=== PATIENT | female | born 1990 | race American Indian/Alaskan Native ===

== ENCOUNTER 2016-11-03 08:38 | Emergency (ER) | payer MEDICAID ==
[2016-11-03 09:25] LABS: Basophils % (Auto) 0.9 % (0.0-1.8); Eosinophils % (Auto) 1.6 % (0.0-4.3); Hematocrit 39.3 % (30.3-42.9); Hemoglobin 12.7 gm/dl (10.1-14.3); Mean Corpuscular HGB Conc 32 % (30-34); Mean Corpuscular Hemoglobin 28 pg (28-32); Mean Corpuscular Volume 86 fl (79-97); Platelet Count 330 K/mm3 (140-440); White Blood Count 9.3 K/mm3 (4.5-11.0)
[2016-11-03 09:35] LABS: Bacteria,Urine 3+ /HPF (Negative); Bilirubin,Urine NEG (Negative); Blood,Urine NEG (Negative); Ketones,Urine NEG (Negative); Leukocyte Esterase,Urine LG (Negative); Mucus,Urine FEW /HPF; Nitrite,Urine NEG (Negative)
[2016-11-03 09:35] LABS: Alanine Aminotransferase 14 units/L (7-56); Albumin 3.9 g/dL (3.9-5); Albumin/Globulin Ratio 1.2 %; Alkaline Phosphatase 48 units/L (35-129); Anion Gap 18 mmol/L; Blood Urea Nitrogen 6 mg/dL (7-17); Calcium 9.2 mg/dL (8.4-10.2); Carbon Dioxide 22 mmol/L (22-30); Chloride 100.6 mmol/L (98-107); Glucose 86 mg/dL (65-100); Lipase 19 units/L (13-60); Potassium 3.8 mmol/L (3.6-5.0); Sodium 137 mmol/L (137-145); Total Protein 7.2 g/dL (6.3-8.2)
[2016-11-03 09:36] LABS: RBC,Urine < 1.0 /HPF (0.0-6.0)
--- NOTE | 2016-11-03 11:00 | Emergency Department Report ---
ED Female HPI - General Chief complaint: Abdominal Pain Stated complaint: ABD PAIN/10WKS Time Seen by Provider: 11/03/16 10:57 Source: patient, RN notes reviewed Mode of arrival: Ambulatory Limitations: No Limitations - History of Present Illness Initial comments: This is a 26-year-old female. She is previously unknown to me. She is 4, para 1. Last menstrual period is August 23. The patient presents to the ER with complaint of nausea, vomiting, inability to tolerate liquid feeds, reports mild unintentional weight loss, suprapubic abdominal discomfort, which is described as pressure-like in nature. The pressure does not radiate anywhere, it worsens when she ambulates. No irritative and obstructive urinary symptoms. No chest pain or shortness of breath. No rectal bleeding. No melena. Patient reports that her emesis is a mix of green, yellow, clear, red. There is no right lower quadrant pain. MD Complaint: pelvic pain -: Gradual Location: suprapubic Radiation: non-radiating Severity: mild Quality: other (pressure) Consistency: intermittent Improves with: other (rest) Worsens with: other (walking) Are you Now?: Yes Associated Symptoms: vaginal discharge, abdominal pain, nausea/vomiting. denies : vaginal bleeding - Related Data Sexually active: Yes Home Medications Medication Instructions Recorded Confirmed Last Taken Ibuprofen [Motrin] 800 mg PO Q8HR PRN 09/16/15 09/16/15 09/16/15 Misoprostol [Cytotec] 200 mcg PO QID 09/16/15 09/16/15 09/16/15 Previous Rx's Medication Instructions Recorded Last Taken Type Naproxen [Naprosyn TAB] 500 mg PO BID #20 tablet 09/16/15 Unknown Rx Nitrofurantoin [place]/M-Cryst 100 mg PO Q12HR #20 capsule 09/16/15 Unknown Rx [Macrobid CAP] metroNIDAZOLE [Flagyl] 500 mg PO Q12HR #14 tab 09/16/15 Unknown Rx traMADol [Ultram 50 MG tab] 50 mg PO Q6HR PRN #10 tablet 09/16/15 Unknown Rx Famotidine [Pepcid] 20 mg PO BID #20 tablet 02/19/16 Unknown Rx diphenhydrAMINE [Benadryl CAP] 25 mg PO Q6HR PRN #25 capsule 02/19/16 Unknown Rx predniSONE [Deltasone] 50 mg PO DAILY #5 tablet 02/19/16 Unknown Rx Doxylamine/Pyridoxine HCl 1 each PO QHS PRN #30 tablet. 11/03/16 Unknown Rx [Chante Kirk 10-10 mg Tablet] Vit W-Ca,Fe,FA(<1 mg) 1 each PO QDAY #30 tablet 11/03/16 Unknown Rx [ Vitamins] Allergies Allergy/AdvReac Type Severity Reaction Status Date / Time No Known Allergies Allergy Verified 09/16/15 14:02 ED Review of Systems ROS: Stated complaint: ABD PAIN/10WKS Other details as noted in HPI Constitutional: malaise Eyes: denies: vision change ENT: denies: epistaxis Respiratory: denies: cough Gastrointestinal: abdominal pain, nausea, vomiting Genitourinary: as per HPI Musculoskeletal: denies: back pain Skin: denies: lesions Neurological: weakness Psychiatric: anxiety ED Past Medical Hx - Past Medical History Previous Medical History?: Yes Additional medical history: vaginal delivery x 1, - Surgical History Past Surgical History?: Yes Additional Surgical History: x 2 - Social History Smoking Status: Never Smoker Substance Use Type: Non Opiate Pain - Medications Home Medications: Home Medications Medication Instructions Recorded Confirmed Last Taken Type Ibuprofen [Motrin] 800 mg PO Q8HR PRN 09/16/15 09/16/15 09/16/15 History Misoprostol [Cytotec] 200 mcg PO QID 09/16/15 09/16/15 09/16/15 History Naproxen [Naprosyn TAB] 500 mg PO BID #20 tablet 09/16/15 Unknown Rx Nitrofurantoin [place]/M-Cryst 100 mg PO Q12HR #20 capsule 09/16/15 Unknown Rx [Macrobid CAP] metroNIDAZOLE [Flagyl] 500 mg PO Q12HR #14 tab 09/16/15 Unknown Rx traMADol [Ultram 50 MG tab] 50 mg PO Q6HR PRN #10 tablet 09/16/15 Unknown Rx Famotidine [Pepcid] 20 mg PO BID #20 tablet 02/19/16 Unknown Rx diphenhydrAMINE [Benadryl CAP] 25 mg PO Q6HR PRN #25 capsule 02/19/16 Unknown Rx predniSONE [Deltasone] 50 mg PO DAILY #5 tablet 02/19/16 Unknown Rx Doxylamine/Pyridoxine HCl 1 each PO QHS PRN #30 tablet. 11/03/16 Unknown Rx [Chante Kirk 10-10 mg Tablet] Vit W-Ca,Fe,FA(<1 mg) 1 each PO QDAY #30 tablet 11/03/16 Unknown Rx [ Vitamins] ED Physical Exam - General Limitations: No Limitations General appearance: alert, in no apparent distress - Head Head exam: Present: atraumatic, normocephalic - Eye Eye exam: Present: normal appearance, EOMI. Absent: nystagmus, other - ENT ENT exam: Present: normal exam, normal orophraynx, mucous membranes moist, normal external ear exam - Neck Neck exam: Present: normal inspection, full ROM. Absent: tenderness, meningismus - Respiratory Respiratory exam: Present: normal lung sounds bilaterally. Absent: respiratory distress, wheezes, rales, rhonchi, stridor, chest wall tenderness, accessory muscle use, decreased breath sounds, prolonged expiratory - Cardiovascular Cardiovascular Exam: Present: regular rate, normal rhythm, normal heart sounds. Absent: bradycardia, tachycardia, irregular rhythm, systolic murmur, diastolic murmur, rubs, gallop - GI/Abdominal GI/Abdominal exam: Present: soft, normal bowel sounds. Absent: distended, tenderness, guarding, rebound, rigid, pulsatile mass - Rectal Rectal exam: Present: normal inspection, normal rectal tone, heme (-) stool - External exam: Present: normal external exam Speculum exam: Present: normal speculum exam, cervical discharge. Absent: vaginal bleeding Bi-manual exam: Present: normal bi-manual exam, other (gynecologic examination: Escorted by nurse Mary Worley). Absent: adnexal tenderness, adnexal mass - Extremities Exam Extremities exam: Present: normal inspection, full ROM, normal capillary refill. Absent: tenderness, pedal edema, joint swelling, calf tenderness - Back Exam Back exam: Present: normal inspection, full ROM. Absent: tenderness, CVA tenderness (R), CVA tenderness (L), muscle spasm, paraspinal tenderness, vertebral tenderness - Neurological Exam Neurological exam: Present: alert, oriented X3, normal gait, other (Extraocular movements intact. Tongue midline. No facial droop. Facial sensation intact to light touch in the V1, V2, V3 distribution bilaterally. 5 and 5 strength in 4 extremities.. Sensation is intact to light touch in 4 extremities.). Absent : motor sensory deficit - Psychiatric Psychiatric exam: Present: normal affect, normal mood - Skin Skin exam: Present: warm, dry, intact, normal color. Absent: rash ED Course Vital Signs 11/03/16 11/03/16 11/03/16 08:48 12:09 13:38 Temperature 98.1 F 98 F Pulse Rate 93 H 90 90 Respiratory 18 16 16 Rate Blood Pressure 103/63 Blood Pressure 96/54 100/56 [Left] O2 Sat by Pulse 100 100 100 Oximetry - Reevaluation(s) Reevaluation #1: 11/03/16 12:05 Differential diagnosis: Subchorionic hemorrhage, miscarriage, ectopic , ovarian cyst, round ligament pain, nausea and vomiting of , hyperemesis Assessment and plan: 25-year-old female with reported lower abdominal pressure, nausea and vomiting. On my assessment she is afebrile with reassuring vital signs, playing on a cellular phone, with no active vomiting. May have a component of mild Марина-Espinoza tear versus gastritis. There is no abdominal tenderness, rebound or guarding. Laboratory studies reviewed, type and screen ordered, quantitative hCG ordered, D5 half-normal ordered, zofran ordered, pelvic ultrasound ordered. Patient will be reevaluated after these interventions have been enacted. Reevaluation #2: 11/03/16 13:12 Gynecologic examination: Escorted by nurse Mary Worley: No cervical motion tenderness, no adnexal tenderness, minimal whitish discharge. Ultrasound demonstrates appropriate intrauterine . Patient tolerating liquid feeds. Abdomen soft on repeat examination. She feels improved. She will be discharged at this time. 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 Return precautions are extensively reviewed. ED Medical Decision Making - Lab Data Result diagrams: 11/03/16 09:04 11/03/16 09:04 Vital Signs 11/03/16 08:48 Temperature 98.1 F Pulse Rate 93 H Respiratory 18 Rate Blood Pressure 103/63 O2 Sat by Pulse 100 Oximetry Lab Results 11/03/16 11/03/16 11/03/16 Range/Units 09:04 09:04 09:14 WBC 9.3 (4.5-11.0) K/mm3 RBC 4.60 (3.65-5.03) M/mm3 Hgb 12.7 (10.1-14.3) gm/dl Hct 39.3 (30.3-42.9) % MCV 86 (79-97) fl MCH 28 (28-32) pg MCHC 32 (30-34) % RDW 13.0 L (13.2-15.2) % Plt Count 330 (140-440) K/mm3 Lymph % (Auto) 23.2 (13.4-35.0) % [place] % (Auto) 6.1 (0.0-7.3) % Eos % (Auto) 1.6 (0.0-4.3) % Baso % (Auto) 0.9 (0.0-1.8) % Lymph # 2.2 (1.2-5.4) K/mm3 [place] # 0.6 (0.0-0.8) K/mm3 Eos # 0.1 (0.0-0.4) K/mm3 Baso # 0.1 (0.0-0.1) K/mm3 Seg Neutrophils % 68.2 (40.0-70.0) % Seg Neutrophils # 6.3 (1.8-7.7) K/mm3 Sodium 137 (137-145) mmol/L Potassium 3.8 (3.6-5.0) mmol/L Chloride 100.6 (98-107) mmol/L Carbon Dioxide 22 (22-30) mmol/L Anion Gap 18 mmol/L BUN 6 L (7-17) mg/dL Creatinine 0.5 L (0.7-1.2) mg/dL Estimated GFR > 60 ml/min BUN/Creatinine Ratio 12.00 % Glucose 86 (65-100) mg/dL Calcium 9.2 (8.4-10.2) mg/dL Total Bilirubin 1.0 (0.1-1.2) mg/dL AST 17 (5-40) units/L ALT 14 (7-56) units/L Alkaline Phosphatase 48 (35-129) units/L Total Protein 7.2 (6.3-8.2) g/dL Albumin 3.9 (3.9-5) g/dL Albumin/Globulin Ratio 1.2 % Lipase 19 (13-60) units/L HCG, Quant (0-4) mIU/mL Urine Color Yellow (Yellow) Urine Turbidity Cloudy (Clear) Urine pH 7.0 (5.0-7.0) Ur Specific [place] 1.021 (1.003-1.030) Urine Protein 30 mg/dl (Negative) mg/dL Urine Glucose (UA) Neg (Negative) mg/dL Urine Ketones Neg (Negative) mg/dL Urine Blood Neg (Negative) Urine Nitrite Neg (Negative) Urine Bilirubin Neg (Negative) Urine Urobilinogen 2.0 (<2.0) mg/dL Ur Leukocyte Esterase Lg (Negative) Urine WBC (Auto) 7.0 H (0.0-6.0) /HPF Urine RBC (Auto) < 1.0 (0.0-6.0) /HPF U Epithel Cells (Auto) 11.0 (0-13.0) /HPF Urine Bacteria (Auto) 3+ (Negative) /HPF Amorphous Crystals Few Urine Mucus Few /HPF Blood Type 11/03/16 11/03/16 Range/Units 11:08 11:08 WBC (4.5-11.0) K/mm3 RBC (3.65-5.03) M/mm3 Hgb (10.1-14.3) gm/dl Hct (30.3-42.9) % MCV (79-97) fl MCH (28-32) pg MCHC (30-34) % RDW (13.2-15.2) % Plt Count (140-440) K/mm3 Lymph % (Auto) (13.4-35.0) % [place] % (Auto) (0.0-7.3) % Eos % (Auto) (0.0-4.3) % Baso % (Auto) (0.0-1.8) % Lymph # (1.2-5.4) K/mm3 [place] # (0.0-0.8) K/mm3 Eos # (0.0-0.4) K/mm3 Baso # (0.0-0.1) K/mm3 Seg Neutrophils % (40.0-70.0) % Seg Neutrophils # (1.8-7.7) K/mm3 Sodium (137-145) mmol/L Potassium (3.6-5.0) mmol/L Chloride (98-107) mmol/L Carbon Dioxide (22-30) mmol/L Anion Gap mmol/L BUN (7-17) mg/dL Creatinine (0.7-1.2) mg/dL Estimated GFR ml/min BUN/Creatinine Ratio % Glucose (65-100) mg/dL Calcium (8.4-10.2) mg/dL Total Bilirubin (0.1-1.2) mg/dL AST (5-40) units/L ALT (7-56) units/L Alkaline Phosphatase (35-129) units/L Total Protein (6.3-8.2) g/dL Albumin (3.9-5) g/dL Albumin/Globulin Ratio % Lipase (13-60) units/L HCG, Quant [id number] H (0-4) mIU/mL Urine Color (Yellow) Urine Turbidity (Clear) Urine pH (5.0-7.0) Ur Specific [place] (1.003-1.030) Urine Protein (Negative) mg/dL Urine Glucose (UA) (Negative) mg/dL Urine Ketones (Negative) mg/dL Urine Blood (Negative) Urine Nitrite (Negative) Urine Bilirubin (Negative) Urine Urobilinogen (<2.0) mg/dL Ur Leukocyte Esterase (Negative) Urine WBC (Auto) (0.0-6.0) /HPF Urine RBC (Auto) (0.0-6.0) /HPF U Epithel Cells (Auto) (0-13.0) /HPF Urine Bacteria (Auto) (Negative) /HPF Amorphous Crystals Urine Mucus /HPF Blood Type B POSITIVE - Radiology Data Radiology results: report reviewed, image reviewed Appropriate intrauterine is noted on pelvic ultrasound. No acute disease otherwise. Critical care attestation.: If time is entered above; I have spent that time in minutes in the direct care of this critically ill patient, excluding procedure time. ED Disposition Clinical Impression: Nausea and vomiting during Disposition: DISCHARGED TO HOME OR SELFCARE Is pt being admited?: No Does the pt Need Aspirin: No Condition: Stable Instructions: Hyperemesis Gravidarum (ED) Additional Instructions: Take the medications as directed. Follow up with a national sales consultant within the next 5-7 days. Symptoms most likely coming from nausea and vomiting associated with . Avoid consumption of heavy and spicy foods. Cultures were sent today, results will be available in the next 3-5 days. Have your FINANCIAL SERVICES ASSISTANT doctor contact the medical records department to obtain culture results. Return to the ER right away with new pain, worsening pain, migration of pain, fevers or chills, intractable nausea or vomiting, inability to tolerate liquid feeds, new, worsening or different symptoms. Prescriptions: Doxylamine/Pyridoxine HCl [Chante Kirk 10-10 mg Tablet] 1 each PO QHS PRN #30 tablet. PRN Reason: Nausea Vit W-Ca,Fe,FA(<1 mg) [ Vitamins] 1 each PO QDAY #30 tablet Referrals: PRIMARY CARE, [Primary Care Provider] - 3-5 Days [facility] [Provider Group] - 3-5 Days [facility] [Provider Group] - 3-5 Days [facility] [Provider Group] - 3-5 Days Forms: Work/School Release Form(ED)
[2016-11-03] MEDS ORDERED: TYLENOL PO ONE (11:10)
[2016-11-03] MEDS ORDERED: ZOFRAN IV ONE (11:10)
[2016-11-03] MEDS ORDERED: D5/0.45NS 1,000 ML IV SCH (12:00)
--- NOTE | 2016-11-03 12:14 | Ultrasound Report ---
ULTRASOUND OB LESS THAN 14 WEEKS FETUS ULTRASOUND OB TRANSVAGINAL HISTORY: Pelvic pain and cramping during . FINDINGS: Transabdominal and transvaginal ultrasound imaging was performed. The uterus measures 12 x 7 x 7 cm. An intrauterine is identified with heart rate measuring 158 beats per minute. Paauilo-rump length measures 37.4 mm which correlates with a 10 week, 4 day . Estimated due date . Amniotic fluid volume appears normal. The placenta appears to be forming anteriorly. The left ovary measures 3.6 x 2.5 x 2.4 cm and contains a 1.9 cm simple appearing cyst. The right ovary is unremarkable and measures 3.6 x 1.6 x 1.4 cm. Impression: Viable, single intrauterine as described. No acute abnormality is noted. 1.9 cm left ovarian cyst.
[2016-11-03 13:39] VITALS: BP 100/56
== END 2016-11-03 13:43 | disposition home or self-care (01) ==
LOC: ED 08:38
DX: O21.9 Vomiting of pregnancy, unspecified (principal); R11.0 Nausea; Z3A.10 10 weeks gestation of pregnancy
CPT/HCPCS: 36415; 76801; 76817; 80053; 81001; 82271; 83690; 84702; 85025; 86850; 86900; 86901; 87210; 87591; 96361; 96374; 99285; J2405

== ENCOUNTER 2016-11-15 01:12 | Emergency (ER) | payer MEDICAID ==
[2016-11-15 01:40] VITALS: BP 105/66
[2016-11-15 04:07] LABS: Bacteria,Urine 1+ /HPF (Negative); Bilirubin,Urine NEG (Negative); Blood,Urine NEG (Negative); Ketones,Urine NEG (Negative); Leukocyte Esterase,Urine LG (Negative); Mucus,Urine FEW /HPF; Nitrite,Urine NEG (Negative); Protein,Urine <15 mg/dL mg/dL (Negative); Urobilinogen,Urine < 2.0 mg/dL (<2.0)
--- NOTE | 2016-11-15 04:15 | Emergency Department Report ---
HPI - General Chief Complaint: Animal Bite Time Seen by Provider: 11/15/16 02:07 - HPI HPI: 26-year-old female presents today complaining of possible spider bite on right arm that occurred 1 week ago and left buttocks that occurred yesterday. Patient did not see despite her. Positive for pruritus but denies pain. Denies trying any medication for symptomatic relief. Patient is currently 12 weeks . Denies vaginal bleeding or discharge. Positive for burning on urination. Denies fever, chills, chest pain, shortness of breath, abdominal pain, increased urinary frequency or urgency, blood in urine. ED Past Medical Hx - Past Medical History Previous Medical History?: No Additional medical history: vaginal delivery x 1, - Surgical History Past Surgical History?: Yes Additional Surgical History: x 2 - Social History Smoking Status: Never Smoker Substance Use Type: None - Medications Home Medications: Home Medications Medication Instructions Recorded Confirmed Last Taken Type Ibuprofen [Motrin] 800 mg PO Q8HR PRN 09/16/15 09/16/15 09/16/15 History Misoprostol [Cytotec] 200 mcg PO QID 09/16/15 09/16/15 09/16/15 History Naproxen [Naprosyn TAB] 500 mg PO BID #20 tablet 09/16/15 Unknown Rx metroNIDAZOLE [Flagyl] 500 mg PO Q12HR #14 tab 09/16/15 Unknown Rx traMADol [Ultram 50 MG tab] 50 mg PO Q6HR PRN #10 tablet 09/16/15 Unknown Rx Famotidine [Pepcid] 20 mg PO BID #20 tablet 02/19/16 Unknown Rx diphenhydrAMINE [Benadryl CAP] 25 mg PO Q6HR PRN #25 capsule 02/19/16 Unknown Rx predniSONE [Deltasone] 50 mg PO DAILY #5 tablet 02/19/16 Unknown Rx Doxylamine/Pyridoxine HCl 1 each PO QHS PRN #30 tablet. 11/03/16 Unknown Rx [Chante Kirk 10-10 mg Tablet] Vit W-Ca,Fe,FA(<1 mg) 1 each PO QDAY #30 tablet 11/03/16 Unknown Rx [ Vitamins] Diphenhydramine HCl [Benadryl GEL] 103 ml TP BID #1 gel..ml. 11/15/16 Unknown Rx Nitrofurantoin [place]/M-Cryst 100 mg PO Q12HR #20 capsule 11/15/16 Unknown Rx [Macrobid CAP] ED Review of Systems ROS: Stated complaint: POSS SPIDER BITE/12 WKS Other details as noted in HPI Constitutional: denies: chills, fever, malaise Eyes: denies: eye pain ENT: denies: ear pain, throat pain, congestion Respiratory: denies: cough, shortness of breath, wheezing Cardiovascular: denies: chest pain, palpitations Endocrine: no symptoms reported Gastrointestinal: nausea ( associated (not new)), vomiting ( associated (not new)). denies: abdominal pain Genitourinary: dysuria. denies: urgency, frequency, hematuria, discharge Neurological: denies: headache, weakness Physical Exam - Physical Exam Vital Signs: Vital Signs 11/15/16 01:37 Temperature 98.2 F Pulse Rate 85 Respiratory 20 Rate Blood Pressure 105/66 O2 Sat by Pulse 100 Oximetry Physical Exam: GENERAL: The patient is well-developed and well-nourished. Patient is in NAD. SKIN: Erythematous, blanching raised patch noted over the left buttock, non- tender to palpation, no necrotic tissue noted. No rash or lesions noted over upper extremities. HEAD: Normocephalic. Atraumatic. EYES: PERRL. EARS: External auditory canals and tympanic membranes clear; hearing grossly intact. NOSE: Normal nasal mucosa with no nasal discharge. THROAT: No erythema, swelling or exudates. NECK: Supple, nontender, without lymphadenopathy. CHEST/LUNGS: Clear to auscultation throughout. HEART/CARDIOVASCULAR: Regular rate and rhythm. No murmurs, rubs or gallops. ABDOMEN: Abdomen is soft, nontender. Bowel sounds normoactive. No guarding or rebound tenderness. EXTREMITIES:Peripheral pulses intact. Capillary refill less than 2 seconds. NEURO: Alert and oriented x 3. Normal gait. ED Course Vital Signs 11/15/16 01:37 Temperature 98.2 F Pulse Rate 85 Respiratory 20 Rate Blood Pressure 105/66 O2 Sat by Pulse 100 Oximetry ED Medical Decision Making - Lab Data Vital Signs 11/15/16 01:37 Temperature 98.2 F Pulse Rate 85 Respiratory 20 Rate Blood Pressure 105/66 O2 Sat by Pulse 100 Oximetry Lab Results 11/15/16 Range/Units Unknown Urine Color Yellow (Yellow) Urine Turbidity Slightly-cloudy (Clear) Urine pH 5.0 (5.0-7.0) Ur Specific [place] 1.020 (1.003-1.030) Urine Protein <15 mg/dl (Negative) mg/dL Urine Glucose (UA) Neg (Negative) mg/dL Urine Ketones Neg (Negative) mg/dL Urine Blood Neg (Negative) Urine Nitrite Neg (Negative) Urine Bilirubin Neg (Negative) Urine Urobilinogen < 2.0 (<2.0) mg/dL Ur Leukocyte Esterase Lg (Negative) Urine WBC (Auto) 68.0 H (0.0-6.0) /HPF Urine RBC (Auto) 4.0 (0.0-6.0) /HPF U Epithel Cells (Auto) 17.0 H (0-13.0) /HPF Urine Bacteria (Auto) 1+ (Negative) /HPF Amorphous Crystals 1+ Urine Mucus Few /HPF - Medical Decision Making 26-year-old female presents today with a insect bite to her left buttocks and urinary tract infection. Patient is currently 12 weeks . Patient is in no acute distress at this time. She will be discharged home and is encouraged to follow up with a primary care provider. She will be sent home on Macrobid and is encouraged to return to the emergency room for any worsening symptoms. Critical care attestation.: If time is entered above; I have spent that time in minutes in the direct care of this critically ill patient, excluding procedure time. ED Disposition Clinical Impression: UTI (urinary tract infection) Qualifiers: Urinary tract infection type: acute cystitis Hematuria presence: without hematuria Qualified Code(s): N30.00 - Acute cystitis without hematuria Insect bite Qualifiers: Encounter type: initial encounter Qualified Code(s): W57.XXXA - Bitten or stung by nonvenomous insect and other nonvenomous arthropods, initial encounter Disposition: DISCHARGED TO HOME OR SELFCARE Is pt being admited?: No Does the pt Need Aspirin: No Condition: Stable Instructions: Urinary Tract Infection in Women (ED), Insect Bite or Sting (ED) Additional Instructions: Follow-up with primary care provider. Return to the emergency department if symptoms worsen. Prescriptions: Diphenhydramine HCl [Benadryl GEL] 103 ml TP BID #1 gel..ml. Nitrofurantoin [place]/M-Cryst [Macrobid CAP] 100 mg PO Q12HR #20 capsule Referrals: PRIMARY CAREMD [Primary Care Provider] - 3-5 Days EL DRAPER MD [Staff Physician] - 3-5 Days Forms: Work/School Release Form(ED) Time of Disposition: 04:16
== END 2016-11-15 04:15 | disposition home or self-care (01) ==
LOC: ED 01:12
DX: O9A.211 Injury, poisoning and certain other consequences of external causes complicating pregnancy, first trimester (principal); O23.11 Infections of bladder in pregnancy, first trimester; N30.00 Acute cystitis without hematuria; Z3A.12 12 weeks gestation of pregnancy; W57.XXXA Bitten or stung by nonvenomous insect and other nonvenomous arthropods, initial encounter; Y93.89 Activity, other specified; Y99.9 Unspecified external cause status; Y92.89 Other specified places as the place of occurrence of the external cause
CPT/HCPCS: 81001; 99283

== ENCOUNTER 2016-11-23 17:56 | Emergency (ER) | payer MEDICAID ==
[2016-11-23] MEDS ORDERED: NACL 0.9% 1000 ML 1,000 ML IV ONE ×2 (18:10→23:28)
--- NOTE | 2016-11-23 18:13 | Emergency Department Report ---
Chief Complaint: Nausea/Vomiting/Diarrhea Stated Complaint: 13 WKS /FALL Time Seen by Provider: 11/23/16 18:10 - HPI History of Present Illness: PT states she is 13 weeks . PT states she has been throwing up for her entire and she does not know what to do. PT states her special tester has given her medication and they have not helped. - ROS Review of Systems: + nausea + vomiting + weight loss - Exam Physical Exam: PT is alert and appropriate. PT spitting up mucous in triage. MSE screening note: Focused history and physical exam performed. Due to findings the following was ordered: labs, fluids ED Disposition for MSE Condition: Stable
[2016-11-23 19:01] LABS: Basophils % (Auto) 0.8 % (0.0-1.8); Eosinophils % (Auto) 1.6 % (0.0-4.3); Hemoglobin 11.9 gm/dl (10.1-14.3); Mean Corpuscular HGB Conc 33 % (30-34); Mean Corpuscular Hemoglobin 28 pg (28-32); Mean Corpuscular Volume 85 fl (79-97); Platelet Count 311 K/mm3 (140-440); Red Blood Count 4.24 M/mm3 (3.65-5.03); Red Cell Distribution Width 12.1 % (13.2-15.2); White Blood Count 10.5 K/mm3 (4.5-11.0)
[2016-11-23 19:20] LABS: Alanine Aminotransferase 18 units/L (7-56); Albumin 3.8 g/dL (3.9-5); Albumin/Globulin Ratio 1.2 %; Alkaline Phosphatase 49 units/L (35-129); Blood Urea Nitrogen 6 mg/dL (7-17); Carbon Dioxide 23 mmol/L (22-30); Glucose 87 mg/dL (65-100); Total Protein 6.9 g/dL (6.3-8.2)
[2016-11-23 19:21] LABS: Anion Gap 17 mmol/L; Chloride 102.2 mmol/L (98-107); Potassium 3.8 mmol/L (3.6-5.0); Sodium 138 mmol/L (137-145)
[2016-11-23] MEDS ORDERED: ZOFRAN ONE (21:43)
[2016-11-23] MEDS ORDERED: ZOFRAN IV ONE (23:28)
[2016-11-23 23:30] LABS: Bilirubin,Urine NEG (Negative); Blood,Urine NEG (Negative); Ketones,Urine 20 mg/dL (Negative); Leukocyte Esterase,Urine NEG (Negative); Mucus,Urine FEW /HPF; Nitrite,Urine NEG (Negative); Protein,Urine <15 mg/dL mg/dL (Negative)
--- NOTE | 2016-11-23 23:41 | Emergency Department Report ---
HPI - General Chief Complaint: Nausea/Vomiting/Diarrhea Time Seen by Provider: 11/23/16 18:10 - HPI HPI: Room 4 The patient is a 26-year-old female presenting with a chief complaint of nausea vomiting and abdominal pain. The patient states she is approximately 13 weeks and for the past 5 weeks she has had intractable nausea and vomiting. The patient states she's been tried on multiple medications including Phenergan , and likely just and Zofran but it has not helped. The patient states yesterday she felt weak while getting into the shower and slipped and fell landing on her right side. Patient denies loss of consciousness but states she' s had left lower quadrant abdominal pain since the fall. Patient denies vaginal bleeding. Patient also admits to vaginal discharge whenever she vomits. 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 ([phone]) Location: Left lower quadrant, gastrointestinal system Duration: 5 weeks Quality: Vomiting Severity: Moderate Modifying factors: [see above] Context: [see above] Mode of transportation: [not driving] ED Past Medical Hx - Past Medical History Previous Medical History?: Yes Additional medical history: vaginal delivery x 1, - Surgical History Past Surgical History?: Yes Additional Surgical History: x 2 - Family History Family history: no significant - Social History Smoking Status: Never Smoker Substance Use Type: None - Medications Home Medications: Home Medications Medication Instructions Recorded Confirmed Last Taken Type Ibuprofen [Motrin] 800 mg PO Q8HR PRN 09/16/15 09/16/15 09/16/15 History Misoprostol [Cytotec] 200 mcg PO QID 09/16/15 09/16/15 09/16/15 History Naproxen [Naprosyn TAB] 500 mg PO BID #20 tablet 09/16/15 Unknown Rx metroNIDAZOLE [Flagyl] 500 mg PO Q12HR #14 tab 09/16/15 Unknown Rx traMADol [Ultram 50 MG tab] 50 mg PO Q6HR PRN #10 tablet 09/16/15 Unknown Rx Famotidine [Pepcid] 20 mg PO BID #20 tablet 02/19/16 Unknown Rx diphenhydrAMINE [Benadryl CAP] 25 mg PO Q6HR PRN #25 capsule 02/19/16 Unknown Rx predniSONE [Deltasone] 50 mg PO DAILY #5 tablet 02/19/16 Unknown Rx Doxylamine/Pyridoxine HCl 1 each PO QHS PRN #30 tablet. 11/03/16 Unknown Rx [Diclegis Dr 10-10 mg Tablet] Vit W-Ca,Fe,FA(<1 mg) 1 each PO QDAY #30 tablet 11/03/16 Unknown Rx [ Vitamins] Diphenhydramine HCl [Benadryl GEL] 103 ml TP BID #1 gel..ml. 11/15/16 Unknown Rx Nitrofurantoin [place]/M-Cryst 100 mg PO Q12HR #20 capsule 11/15/16 Unknown Rx [Macrobid CAP] Metoclopramide [Reglan] 10 mg PO QID PRN #30 tab 11/24/16 Unknown Rx ED Review of Systems ROS: Stated complaint: 13 WKS /FALL Other details as noted in HPI Comment: All other systems reviewed and negative Constitutional: denies: chills, fever Eyes: denies: eye pain, eye discharge, vision change ENT: denies: ear pain, throat pain Respiratory: denies: cough, shortness of breath, wheezing Cardiovascular: denies: chest pain, palpitations Endocrine: no symptoms reported Gastrointestinal: abdominal pain, nausea, vomiting. denies: diarrhea Genitourinary: discharge Musculoskeletal: denies: back pain, joint swelling, arthralgia Skin: denies: rash, lesions Neurological: denies: headache, weakness, paresthesias Psychiatric: denies: anxiety, depression Hematological/Lymphatic: denies: easy bleeding, easy bruising Physical Exam - Physical Exam Vital Signs: Vital Signs 11/23/16 11/23/16 18:04 22:38 Temperature 98 F Pulse Rate 92 H 74 Respiratory 20 16 Rate Blood Pressure 145/66 Blood Pressure 93/50 [Left] O2 Sat by Pulse 100 98 Oximetry Physical Exam: GENERAL: The patient is well-developed well-nourished female lying on stretcher not appearing to be in acute distress. [] HEENT: Normocephalic. Atraumatic. Extraocular motions are intact. NECK: Supple. Trachea midline CHEST/LUNGS: Clear to auscultation. There is no respiratory distress noted. HEART/CARDIOVASCULAR: Regular. There is no tachycardia. There is no gallop rub or murmur. ABDOMEN: Abdomen is soft, with mild discomfort to palpation in the left lower quadrant. Patient has normal bowel sounds. There is no abdominal distention. SKIN: There is no rash. There is no edema. There is no diaphoresis. NEURO: The patient is awake, alert, and oriented. The patient is cooperative. The patient has normal speech MUSCULOSKELETAL: There is no evidence of acute injury. ED Course Vital Signs 11/23/16 11/23/16 18:04 22:38 Temperature 98 F Pulse Rate 92 H 74 Respiratory 20 16 Rate Blood Pressure 145/66 Blood Pressure 93/50 [Left] O2 Sat by Pulse 100 98 Oximetry - Reevaluation(s) Reevaluation #1: 11/24/16 01:46 Patient tolerating po liquids and crackers ED Medical Decision Making - Lab Data Result diagrams: 11/23/16 18:46 11/23/16 18:46 Laboratory Results - last 24 hr 11/23/16 11/23/16 11/23/16 18:46 18:46 18:46 WBC 10.5 RBC 4.24 Hgb 11.9 Hct 36.0 MCV 85 MCH 28 MCHC 33 RDW 12.1 L Plt Count 311 Lymph % (Auto) 23.6 [place] % (Auto) 6.1 Eos % (Auto) 1.6 Baso % (Auto) 0.8 Lymph # 2.5 [place] # 0.6 Eos # 0.2 Baso # 0.1 Seg Neutrophils % 67.9 Seg Neutrophils # 7.2 Sodium 138 Potassium 3.8 Chloride 102.2 Carbon Dioxide 23 Anion Gap 17 BUN 6 L Creatinine 0.5 L Estimated GFR > 60 BUN/Creatinine Ratio 12.00 Glucose 87 Calcium 9.0 Total Bilirubin 0.50 AST 11 ALT 18 Alkaline Phosphatase 49 Total Protein 6.9 Albumin 3.8 L Albumin/Globulin Ratio 1.2 HCG, Quant 25841 H Urine Bilirubin Urine RBC (Auto) U Epithel Cells (Auto) 11/23/16 22:55 WBC RBC Hgb Hct MCV MCH MCHC RDW Plt Count Lymph % (Auto) [place] % (Auto) Eos % (Auto) Baso % (Auto) Lymph # [place] # Eos # Baso # Seg Neutrophils % Seg Neutrophils # Sodium Potassium Chloride Carbon Dioxide Anion Gap BUN Creatinine Estimated GFR BUN/Creatinine Ratio Glucose Calcium Total Bilirubin AST ALT Alkaline Phosphatase Total Protein Albumin Albumin/Globulin Ratio HCG, Quant Urine Bilirubin Neg Urine RBC (Auto) 3.0 U Epithel Cells (Auto) 1.0 - Radiology Data Radiology results: report reviewed (pelvic ultrasound), image reviewed (pelvic ultrasound) Pelvic ultrasound (read by radiologist)-single live intrauterine gestation, estimated gestational age 13 weeks 0 days for estimated date of confinement of 05/31/2017. The heart rate is beating at a rate of 155 bpm. - Differential Diagnosis hyperemesis gravidarum, subchorionic hemorrhage, UTI Critical care attestation.: If time is entered above; I have spent that time in minutes in the direct care of this critically ill patient, excluding procedure time. ED Disposition Clinical Impression: Hyperemesis gravidarum Disposition: DISCHARGED TO HOME OR SELFCARE Is pt being admited?: No Does the pt Need Aspirin: No Condition: Stable Instructions: Hyperemesis Gravidarum (ED) Additional Instructions: Return to the emergency department immediately should you develop worsening symptoms, fever, inability to tolerate food or liquid or any other concerns. Prescriptions: Metoclopramide [Reglan] 10 mg PO QID PRN #30 tab PRN Reason: Nausea Referrals: CHARANJIT LABOY JR, MD [Primary Care Provider] - 3-5 Days [place] tracer bullet section supervisor [Other] - [place] Time of Disposition: 01:49
--- NOTE | 2016-11-24 00:29 | Ultrasound Report ---
FINAL REPORT EXAM: US OB \T\lt; = 14 WEEKS FETUS HISTORY: left lower quadrant abdominal pain after fall TECHNIQUE: Real-time sonography was performed of the gravid uterus transabdominally and endovaginally and images are submitted for interpretation. PRIORS: None. FINDINGS: The uterus appears normal and has a grossly normal appearing gestational sac. There is a normal appearing pole measuring 6.7 centimeters for an estimated gestational age of 13 weeks 0 days. The heart is beating at a rate of 155 beats per minute. Both ovaries are visualized and appear normal. The right ovary measures 2.2 x 1.3 x 1.7 cm and the left measures 2.6 x 1.3 x 1.9 cm. IMPRESSION: Single live intrauterine gestation, estimated gestational age 13 weeks 0 days for an estimated date of confinement of 05/31/2017.
[2016-11-24] MEDS ORDERED: REGLAN IV ONE (00:38)
[2016-11-24 00:39] VITALS: BP 93/54
== END 2016-11-24 01:58 | disposition home or self-care (01) ==
LOC: ED 17:56
DX: O21.0 Mild hyperemesis gravidarum (principal); Z3A.13 13 weeks gestation of pregnancy
CPT/HCPCS: 36415; 76801; 80053; 81001; 84702; 85025; 96361; 96374; 96375; 99284; J2405; J2765; J7030

== ENCOUNTER 2017-02-14 17:35 | Outpatient (CLI) | payer MEDICAID ==
[2017-02-14] MEDS ORDERED: LACTATED RINGERS 500 ML IV ONE (18:22)
[2017-02-14 19:00] VITALS: BP 111/64
[2017-02-14 19:54] LABS: Bilirubin,Urine NEG (Negative); Blood,Urine NEG (Negative); Ketones,Urine NEG (Negative); Leukocyte Esterase,Urine LG (Negative); Mucus,Urine FEW /HPF; Nitrite,Urine NEG (Negative); Protein,Urine <15 mg/dL mg/dL (Negative)
[2017-02-14] MEDS ORDERED: MACROBID PO ONE (20:08)
[2017-02-14] MEDS ORDERED: DIFLUCAN PO ONE (21:00)
== END 2017-02-14 20:40 | disposition home or self-care (01) ==
LOC: TRG 17:35
PROVIDERS: ATTEND Obstetrics & Gynecology Gynecology
DX: O47.02 False labor before 37 completed weeks of gestation, second trimester (principal); Z3A.25 25 weeks gestation of pregnancy
CPT/HCPCS: 81001

== ENCOUNTER 2017-03-28 21:36 | Outpatient (CLI) | payer MEDICAID ==
[2017-03-28] MEDS ORDERED: LACTATED RINGERS 500 ML IV ONE (22:03)
[2017-03-28 22:19] VITALS: BP 113/63
[2017-03-28 22:33] LABS: Bilirubin,Urine NEG (Negative); Blood,Urine NEG (Negative); Ketones,Urine TR mg/dL (Negative); Leukocyte Esterase,Urine NEG (Negative); Mucus,Urine 2+ /HPF; Nitrite,Urine NEG (Negative); WBC,Urine < 1.0 /HPF (0.0-6.0)
== END 2017-03-28 23:05 | disposition home or self-care (01) ==
LOC: TRG 21:36
PROVIDERS: ATTEND Obstetrics & Gynecology
DX: Z34.93 Encounter for supervision of normal pregnancy, unspecified, third trimester (principal); Z3A.31 31 weeks gestation of pregnancy
CPT/HCPCS: 59025; 81001

== ENCOUNTER 2018-02-15 21:50 | Emergency (ER) | payer MEDICAID ==
[2018-02-15 22:53] VITALS: BP 116/78
[2018-02-16] MEDS ORDERED: TRIMOX PO ONE (03:00)
[2018-02-16] MEDS ORDERED: MOTRIN PO ONE (03:00)
--- NOTE | 2018-02-16 03:05 | Emergency Department Report ---
Minor Respiratory - HPI Chief Complaint: Upper Respiratory Infection Stated Complaint: COLD SX Time Seen by Provider: 02/16/18 02:59 Duration: 2 Days Pain Location: Throat Severity: moderate Minor Respiratory: Yes Sore Throat, Yes Able to Tolerate Fluids, Yes Cough, Yes Sick Contacts, Yes Fever, No Rhinorrhea, No Ear Pain, No Hemoptysis, No Chest Pain, No Shortness of Breath ED Review of Systems ROS: Stated complaint: COLD SX Other details as noted in HPI Constitutional: chills, fever Eyes: denies: eye pain, eye discharge, vision change ENT: throat pain, congestion Respiratory: cough. denies: shortness of breath, wheezing Cardiovascular: denies: chest pain, palpitations Endocrine: no symptoms reported Gastrointestinal: denies: abdominal pain, nausea, diarrhea Genitourinary: denies: urgency, dysuria, discharge Musculoskeletal: denies: back pain, joint swelling, arthralgia Skin: denies: rash, lesions Neurological: denies: headache, weakness, paresthesias Psychiatric: denies: anxiety, depression Hematological/Lymphatic: denies: easy bleeding, easy bruising ED Past Medical Hx - Past Medical History Previous Medical History?: No Hx Hypertension: No Hx Diabetes: No Hx Deep Vein Thrombosis: No Hx Renal Disease: No Hx Sickle Cell Disease: No Hx Seizures: No Hx Asthma: No Hx HIV: No Additional medical history: vaginal delivery x 1, - Surgical History Past Surgical History?: Yes Additional Surgical History: x 2 - Social History Smoking Status: Never Smoker Substance Use Type: None - Medications Home Medications: Home Medications Medication Instructions Recorded Confirmed Last Taken Type Vit Calc,Iron,Folic 1 each PO QDAY #30 tablet 11/03/16 03/28/17 Rx [ Vitamins] Amoxicillin [Trimox CAP] 500 mg PO Q8H #30 capsule 02/16/18 Unknown Rx Ibuprofen [Motrin 800 MG tab] 800 mg PO Q8HR PRN #30 tablet 02/16/18 Unknown Rx Minor Respiratory Exam - Exam General: Vital signs noted. No distress. Alert and acting appropriately. HEENT: Yes Pharyngeal Erythema, Yes Pharyngeal Exudates, Yes Rhinorrhea, Yes Maxillary Tenderness, No Moist Mucous Membranes, No Conjuctival Injection, No Frontal Tenderness Ear: Neither TM Bulge, Neither TM Erythema, Neither EAC Pain, Neither EAC Discharge Neck: No Adenopathy, No Supple Lungs: Yes Good Air Exchange, Yes Cough, No Wheezes, No Ronchi, No Stridor, No Labored Respirations, No Retractions, No Use of Accessory Muscles, No Other Abnormal Lung Sounds Heart: Yes Regular, No Murmur Abdomen: Yes Normal Bowel Sounds, No Tenderness, No Peritoneal Signs Skin: No Rash, No Edema Neurologic: Alert and oriented, no deficits. Musculoskeletal: Unremarkable. ED Course Vital Signs 02/15/18 22:47 Temperature 97.8 F Pulse Rate 98 H Respiratory 16 Rate Blood Pressure 116/78 O2 Sat by Pulse 98 Oximetry ED Medical Decision Making - Medical Decision Making This 27-year-old Yessi female who presents for pharyngitis mild exudate erythema uvula remains midline the postnasal drip no tonsillar abscess no stridor no wheezing to control with ibuprofen at this time , plan DC'd home amoxicillin and ibuprofen follow-up PCP in 2-3 days . He verbalizes understanding and agreement was signed will be DC'd home in stable condition at this time Critical care attestation.: If time is entered above; I have spent that time in minutes in the direct care of this critically ill patient, excluding procedure time. ED Disposition Clinical Impression: Pharyngitis Qualifiers: Pharyngitis/tonsillitis etiology: unspecified etiology Qualified Code(s): J02.9 - Acute pharyngitis, unspecified Disposition: DC-01 TO HOME OR SELFCARE Is pt being admited?: No Does the pt Need Aspirin: No Condition: Good Instructions: Pharyngitis (ED) Prescriptions: Amoxicillin [Trimox CAP] 500 mg PO Q8H #30 capsule Ibuprofen [Motrin 800 MG tab] 800 mg PO Q8HR PRN #30 tablet PRN Reason: Pain , Severe (7-10) Referrals: CHARANJIT LABOY JR, MD [Primary Care Provider] - 3-5 Days Forms: Work/School Release Form(ED) Time of Disposition: 03:06
== END 2018-02-16 03:27 | disposition home or self-care (01) ==
LOC: ED 21:50
DX: J02.9 Acute pharyngitis, unspecified (principal)
CPT/HCPCS: 99282

== ENCOUNTER 2018-09-05 11:41 | Emergency (ER) | payer SELFPAY ==
[2018-09-05 11:54] VITALS: BP 107/62
--- NOTE | 2018-09-05 11:54 | Emergency Department Report ---
Blank Doc - Documentation Documentation: This is a 27-year-old female that present with dysuria that started this morni ng. Denies any back pain. Denies any vaginal discharge. Denies any other complaints. This initial assessment diagnostic orders/clinical plan/treatment(s) is/are subject to change based on patient's health status, clinical progression and re- assessment by fellow clinical providers in the ED. Further treatment and workup at subsequent clinical providers discretion. Patient/guardians urged not to elope from ED s their condition may be serious if not clinically assessed and managed. Initial orders include: 1-UA
[2018-09-05 12:59] LABS: Bilirubin,Urine NEG (Negative); Blood,Urine NEG (Negative); Color,Urine Yellow (Yellow); Hyaline Casts,Urine 1 /LPF; Mucus,Urine 1+ /HPF; Protein,Urine <15 mg/dL mg/dL (Negative)
--- NOTE | 2018-09-05 13:47 | Emergency Department Report ---
ED Female HPI - General Chief complaint: Urogenital-Female Stated complaint: POSS UTI Time Seen by Provider: 09/05/18 11:52 Source: patient Mode of arrival: Ambulatory Limitations: No Limitations - History of Present Illness MD Complaint: vaginal discharge, dysuria -: days(s) Radiation: non-radiating Severity: moderate Improves with: urination Are you Now?: No - Related Data Sexually active: Yes Previous Rx's Medication Instructions Recorded Last Taken Type Vit Calc,Iron,Folic 1 each PO QDAY #30 tablet 11/03/16 03/27/17 Rx [ Vitamins] Amoxicillin [Trimox CAP] 500 mg PO Q8H #30 capsule 02/16/18 Unknown Rx Ibuprofen [Motrin 800 MG tab] 800 mg PO Q8HR PRN #30 tablet 02/16/18 Unknown Rx Metoclopramide [Reglan] 10 mg PO TID PRN #30 tab 06/21/18 Unknown Rx Triamcinolone Aceton 0.1% (Nf) 1 applic TP BID 14 Days #1 tube 06/21/18 Unknown Rx [Kenalog (NF)] diphenhydrAMINE [Benadryl CAP] 25 mg PO Q8HR PRN #30 capsule 06/21/18 Unknown Rx predniSONE [Deltasone] 40 mg PO QDAY 5 Days #10 tab 06/21/18 Unknown Rx Allergies Allergy/AdvReac Type Severity Reaction Status Date / Time No Known Allergies Allergy Verified 09/05/18 11:42 ED Review of Systems ROS: Stated complaint: POSS UTI Other details as noted in HPI Comment: All other systems reviewed and negative Constitutional: denies: chills, fever Respiratory: denies: cough, orthopnea, shortness of breath, SOB with exertion, wheezing Cardiovascular: denies: chest pain, palpitations, dyspnea on exertion Gastrointestinal: denies: abdominal pain, nausea, vomiting, diarrhea, constipation, hematemesis, hematochezia Musculoskeletal: denies: back pain ED Past Medical Hx - Past Medical History Previous Medical History?: No Hx Hypertension: No Hx Diabetes: No Hx Deep Vein Thrombosis: No Hx Renal Disease: No Hx Sickle Cell Disease: No Hx Seizures: No Hx Asthma: No Hx HIV: No Additional medical history: vaginal delivery x 1, - Surgical History Additional Surgical History: x 2 - Social History Smoking Status: Never Smoker Substance Use Type: None - Medications Home Medications: Home Medications Medication Instructions Recorded Confirmed Last Taken Type Vit Calc,Iron,Folic 1 each PO QDAY #30 tablet 11/03/16 03/28/17 03/27/17 Rx [ Vitamins] Amoxicillin [Trimox CAP] 500 mg PO Q8H #30 capsule 02/16/18 Unknown Rx Ibuprofen [Motrin 800 MG tab] 800 mg PO Q8HR PRN #30 tablet 02/16/18 Unknown Rx Metoclopramide [Reglan] 10 mg PO TID PRN #30 tab 06/21/18 Unknown Rx Triamcinolone Aceton 0.1% (Nf) 1 applic TP BID 14 Days #1 tube 06/21/18 Unknown Rx [Kenalog (NF)] diphenhydrAMINE [Benadryl CAP] 25 mg PO Q8HR PRN #30 capsule 06/21/18 Unknown Rx predniSONE [Deltasone] 40 mg PO QDAY 5 Days #10 tab 06/21/18 Unknown Rx ED Physical Exam - General Limitations: No Limitations General appearance: alert, in no apparent distress - Head Head exam: Present: atraumatic, normocephalic, normal inspection - Eye Eye exam: Present: normal appearance - ENT ENT exam: Present: normal exam, normal orophraynx, mucous membranes moist - Neck Neck exam: Present: normal inspection, full ROM. Absent: tenderness, lymphadenopathy - Respiratory Respiratory exam: Present: normal lung sounds bilaterally - Cardiovascular Cardiovascular Exam: Present: regular rate, normal rhythm, normal heart sounds - GI/Abdominal GI/Abdominal exam: Present: soft, normal bowel sounds. Absent: distended, tenderness, guarding, rebound, rigid, organomegaly, mass, bruit, pulsatile mass, hernia - External exam: Present: normal external exam Speculum exam: Present: vaginal discharge Bi-manual exam: Present: normal bi-manual exam. Absent: cervical motion tendernes, adnexal tenderness, adnexal mass, uterine enlargement, uterine tenderness - Extremities Exam Extremities exam: Present: normal inspection, full ROM, normal capillary refill. Absent: pedal edema, calf tenderness - Back Exam Back exam: Present: normal inspection, full ROM. Absent: CVA tenderness (R), CVA tenderness (L), muscle spasm - Neurological Exam Neurological exam: Present: alert, oriented X3, CN II-XII intact, normal gait, reflexes normal - Skin Skin exam: Present: warm, intact, normal color ED Course Vital Signs 09/05/18 11:52 Temperature 98.2 F Pulse Rate 78 Respiratory 18 Rate Blood Pressure 107/62 O2 Sat by Pulse 98 Oximetry ED Medical Decision Making - Medical Decision Making Wet prep is negative for Trichomonas, clue cells and yeast. Since patient is symptomatic I will treat in the ER with Rocephin 250 mg IM and Zithromax 1 g. I will discharge the patient with doxycycline for 7 days. Critical care attestation.: If time is entered above; I have spent that time in minutes in the direct care of this critically ill patient, excluding procedure time. ED Disposition Clinical Impression: Dysuria, Vaginal discharge, STD (female) Disposition: - TO HOME OR SELFCARE Is pt being admited?: No Condition: Stable Instructions: Sexually Transmitted Diseases (ED), Safe Sex (ED), Dysuria (ED) Referrals: LEIA BADILLO [Primary Care Provider] - 3-5 Days
[2018-09-05 13:56] LABS: HCG Qualitative,Urine Negative (Negative)
[2018-09-05] MEDS ORDERED: ZITHROMAX PO ONE (14:33)
[2018-09-05] MEDS ORDERED: XYLOCAINE 1% MPF 5 mL INFILTRATI ONE (14:33)
[2018-09-05] MEDS ORDERED: ROCEPHIN IM ONE (14:33)
== END 2018-09-05 15:05 | disposition home or self-care (01) ==
LOC: ED 11:41
DX: A64 Unspecified sexually transmitted disease (principal); N89.8 Other specified noninflammatory disorders of vagina; R30.0 Dysuria
CPT/HCPCS: 81001; 81025; 87210; 87591; 96372; 99284; J0696

== ENCOUNTER 2018-10-27 17:47 | Emergency (ER) | payer MEDICAID ==
[2018-10-27 18:09] VITALS: BP 106/63
--- NOTE | 2018-10-27 18:09 | Emergency Department Report ---
Chief Complaint: Urogenital-Female Stated Complaint: BACTERIAL INFECTION Time Seen by Provider: 10/27/18 18:07 - HPI History of Present Illness: pt has BV was given metrogel, states it is not working still having white vaginal discharge no vaginal itching, no blisters, no lesions sexually active, states she uses protection no urinary sx pt is on depo provera shots MSE screening note: Focused history and physical exam performed. Due to findings the following was ordered: UA, urine preg, wet prep, G/C ED Disposition for MSE Condition: Stable
[2018-10-27 20:24] LABS: Bilirubin,Urine NEG (Negative); Blood,Urine NEG (Negative); Color,Urine Yellow (Yellow); Mucus,Urine 3+ /HPF; Protein,Urine <15 mg/dL mg/dL (Negative)
[2018-10-27 20:38] LABS: HCG Qualitative,Urine Negative (Negative)
--- NOTE | 2018-10-27 22:43 | Emergency Department Report ---
ED Female HPI - General Chief complaint: Urogenital-Female Stated complaint: BACTERIAL INFECTION Time Seen by Provider: 10/27/18 18:07 Source: patient Mode of arrival: Ambulatory Limitations: No Limitations - History of Present Illness Initial comments: 27-year-old [place] female who department complaining of continued vaginal discharge at the been treated in September for reported bacterial vaginosis infection with MetroGel. Reports having vaginal older and they state discontinue discharge. She has swabs done last time she was evaluated in September at different hospital, however, does not know the results. MD Complaint: vaginal discharge -: Gradual Location: suprapubic Radiation: non-radiating Severity: mild Quality: dull Consistency: constant Improves with: none Worsens with: none Are you Now?: No Associated Symptoms: vaginal discharge. denies: vaginal bleeding, abdominal pain, loss of appetite, dysuria, hematuria, shortness of breath, syncope - Related Data Sexually active: No Previous Rx's Medication Instructions Recorded Last Taken Type Vit Calc,Iron,Folic 1 each PO QDAY #30 tablet 11/03/16 03/27/17 Rx [ Vitamins] Amoxicillin [Trimox CAP] 500 mg PO Q8H #30 capsule 02/16/18 Unknown Rx Ibuprofen [Motrin 800 MG tab] 800 mg PO Q8HR PRN #30 tablet 02/16/18 Unknown Rx Metoclopramide [Reglan] 10 mg PO TID PRN #30 tab 06/21/18 Unknown Rx Triamcinolone Aceton 0.1% (Nf) 1 applic TP BID 14 Days #1 tube 06/21/18 Unknown Rx [Kenalog (NF)] diphenhydrAMINE [Benadryl CAP] 25 mg PO Q8HR PRN #30 capsule 06/21/18 Unknown Rx predniSONE [Deltasone] 40 mg PO QDAY 5 Days #10 tab 06/21/18 Unknown Rx Doxycycline [Vibramycin CAP] 100 mg PO Q12HR #14 capsule 09/05/18 Unknown Rx Doxycycline [Vibramycin CAP] 100 mg PO BID #28 capsule 10/27/18 Unknown Rx metroNIDAZOLE [Flagyl] 2,000 mg PO ONCE #4 tablet 10/27/18 Unknown Rx Allergies Allergy/AdvReac Type Severity Reaction Status Date / Time No Known Allergies Allergy Verified 09/05/18 11:42 ED Review of Systems ROS: Stated complaint: BACTERIAL INFECTION Other details as noted in HPI Constitutional: denies: chills, fever Eyes: denies: eye pain, eye discharge, vision change ENT: denies: ear pain, throat pain Respiratory: denies: cough, shortness of breath, wheezing Cardiovascular: denies: chest pain, palpitations Endocrine: no symptoms reported. denies: excessive sweating, flushing, intolerance to cold, increased hunger, increased thirst Gastrointestinal: denies: abdominal pain, nausea, diarrhea Genitourinary: denies: urgency, dysuria, discharge Musculoskeletal: denies: back pain, joint swelling, arthralgia Skin: denies: rash, lesions Neurological: denies: headache, weakness, paresthesias Psychiatric: denies: anxiety, depression Hematological/Lymphatic: denies: easy bleeding, easy bruising ED Past Medical Hx - Past Medical History Previous Medical History?: Yes Hx Hypertension: No Hx Diabetes: No Hx Deep Vein Thrombosis: No Hx Renal Disease: No Hx Sickle Cell Disease: No Hx Seizures: No Hx Asthma: No Hx HIV: No Additional medical history: vaginal delivery x 1, - Surgical History Past Surgical History?: Yes Additional Surgical History: x 2 - Social History Smoking Status: Never Smoker Substance Use Type: None - Medications Home Medications: Home Medications Medication Instructions Recorded Confirmed Last Taken Type Vit Calc,Iron,Folic 1 each PO QDAY #30 tablet 11/03/16 03/28/17 03/27/17 Rx [ Vitamins] Amoxicillin [Trimox CAP] 500 mg PO Q8H #30 capsule 02/16/18 Unknown Rx Ibuprofen [Motrin 800 MG tab] 800 mg PO Q8HR PRN #30 tablet 02/16/18 Unknown Rx Metoclopramide [Reglan] 10 mg PO TID PRN #30 tab 06/21/18 Unknown Rx Triamcinolone Aceton 0.1% (Nf) 1 applic TP BID 14 Days #1 tube 06/21/18 Unknown Rx [Kenalog (NF)] diphenhydrAMINE [Benadryl CAP] 25 mg PO Q8HR PRN #30 capsule 06/21/18 Unknown Rx predniSONE [Deltasone] 40 mg PO QDAY 5 Days #10 tab 06/21/18 Unknown Rx Doxycycline [Vibramycin CAP] 100 mg PO Q12HR #14 capsule 09/05/18 Unknown Rx Doxycycline [Vibramycin CAP] 100 mg PO BID #28 capsule 10/27/18 Unknown Rx metroNIDAZOLE [Flagyl] 2,000 mg PO ONCE #4 tablet 10/27/18 Unknown Rx ED Physical Exam - General Limitations: No Limitations General appearance: alert, in no apparent distress - Head Head exam: Present: atraumatic, normocephalic - Eye Eye exam: Present: normal appearance, PERRL, EOMI Pupils: Present: normal accommodation - ENT ENT exam: Present: normal exam, normal orophraynx, mucous membranes moist, TM's normal bilaterally - Neck Neck exam: Present: normal inspection, full ROM - Respiratory Respiratory exam: Present: normal lung sounds bilaterally. Absent: respiratory distress, rales, rhonchi, accessory muscle use, decreased breath sounds - Cardiovascular Cardiovascular Exam: Present: regular rate, normal rhythm. Absent: systolic murmur, diastolic murmur, rubs, gallop - GI/Abdominal GI/Abdominal exam: Present: soft, normal bowel sounds - External exam: Present: normal external exam Speculum exam: Present: vaginal discharge (yellowish colon) - Extremities Exam Extremities exam: Present: normal inspection, full ROM, normal capillary refill - Back Exam Back exam: Present: normal inspection - Neurological Exam Neurological exam: Present: alert, oriented X3 - Psychiatric Psychiatric exam: Present: normal affect, normal mood - Skin Skin exam: Present: warm, dry, intact, normal color. Absent: rash ED Course Vital Signs 10/27/18 18:08 Temperature 98 F Pulse Rate 88 Respiratory 18 Rate Blood Pressure 106/63 O2 Sat by Pulse 97 Oximetry Critical care attestation.: If time is entered above; I have spent that time in minutes in the direct care of this critically ill patient, excluding procedure time. ED Disposition Clinical Impression: Bacterial vaginosis Disposition: DC-01 TO HOME OR SELFCARE Is pt being admited?: No Does the pt Need Aspirin: No Condition: Stable Instructions: Bacterial Vaginosis (ED) Prescriptions: metroNIDAZOLE [Flagyl] 2,000 mg PO ONCE #4 tablet Doxycycline [Vibramycin CAP] 100 mg PO BID #28 capsule Referrals: YADY STINSON [Other] - 3-5 Days Forms: STI Treatment and Prevention
== END 2018-10-27 22:55 | disposition home or self-care (01) ==
LOC: ED 17:47
DX: N76.0 Acute vaginitis (principal)
CPT/HCPCS: 81001; 81025; 87210; 87591

== ENCOUNTER 2019-07-06 07:43 | Emergency (ER) | payer MEDICAID ==
[2019-07-06 07:48] VITALS: BP 112/69
--- NOTE | 2019-07-06 08:42 | Emergency Department Report ---
Minor Respiratory - HPI Chief Complaint: Sore Throat Stated Complaint: PINK EYE/SORE THROAT Time Seen by Provider: 07/06/19 08:36 Duration: 3 Days Pain Location: Throat, Other Severity: moderate Minor Respiratory: Yes Rhinorrhea, Yes Sore Throat, Yes Able to Tolerate Fluids, Yes Sick Contacts, No Ear Pain, No Cough, No Hemoptysis, No Chest Pain, No Shortness of Breath, No Fever Other History: 28 yo AA female with pink eye and sore throat for now owver 5 days. had child with same. abc intact. no abscess ED Review of Systems ROS: Stated complaint: PINK EYE/SORE THROAT Other details as noted in HPI Comment: All other systems reviewed and negative ED Past Medical Hx - Past Medical History Previous Medical History?: No Hx Hypertension: No Hx Diabetes: No Hx Deep Vein Thrombosis: No Hx Renal Disease: No Hx Sickle Cell Disease: No Hx Seizures: No Hx Asthma: No Hx HIV: No Additional medical history: vaginal delivery x 1, - Surgical History Past Surgical History?: Yes Additional Surgical History: x 2 - Family History Family history: no significant - Social History Smoking Status: Never Smoker Substance Use Type: None - Medications Home Medications: Home Medications Medication Instructions Recorded Confirmed Last Taken Type Amoxicillin [Trimox CAP] 500 mg PO BID #20 capsule 07/06/19 Unknown Rx Polymyxin B Sulf/Trimethoprim 1 drop OP QID #1 bottle 07/06/19 Unknown Rx [Polytrim Eye Drops [id number]/0.1%] Minor Respiratory Exam - Exam General: Vital signs noted. No distress. Alert and acting appropriately. HEENT: Yes Pharyngeal Erythema, Yes Moist Mucous Membranes, Yes Frontal Tenderness, Yes Maxillary Tenderness, No Pharyngeal Exudates, No Rhinorrhea, No Conjuctival Injection Ear: Neither TM Bulge, Neither TM Erythema, Neither EAC Pain, Neither EAC Discharge Neck: Yes Supple, No Adenopathy Lungs: Yes Good Air Exchange, No Wheezes, No Ronchi, No Stridor, No Cough, No Labored Respirations, No Retractions, No Use of Accessory Muscles, No Other Abnormal Lung Sounds Heart: Yes Regular, No Murmur Abdomen: Yes Normal Bowel Sounds, No Tenderness, No Peritoneal Signs Skin: No Rash, No Edema Neurologic: Alert and oriented, no deficits. Musculoskeletal: Unremarkable. ED Course Vital Signs 07/06/19 07:47 Temperature 97.8 F Pulse Rate 87 Respiratory 18 Rate Blood Pressure 112/69 O2 Sat by Pulse 96 Oximetry ED Medical Decision Making - Medical Decision Making abc intact vss no fever no abscess taking po red l eye red pharynx no cough lungs cta sick child dc home with rx. Vital Signs 07/06/19 07:47 Temperature 97.8 F Pulse Rate 87 Respiratory 18 Rate Blood Pressure 112/69 O2 Sat by Pulse 96 Oximetry - Differential Diagnosis strep/pink eye/ abscess post pharyn/pna Critical care attestation.: If time is entered above; I have spent that time in minutes in the direct care of this critically ill patient, excluding procedure time. ED Disposition Clinical Impression: URTI (acute upper respiratory infection), Conjunctivitis Disposition: DC-01 TO HOME OR SELFCARE Is pt being admited?: No Does the pt Need Aspirin: No Condition: Stable Instructions: Upper Respiratory Infection (ED) Referrals: LEIA BADILLO MD [Staff Physician] - 3-5 Days Time of Disposition: 08:38
== END 2019-07-06 09:53 | disposition home or self-care (01) ==
LOC: ED 07:43
DX: J06.9 Acute upper respiratory infection, unspecified (principal); H10.9 Unspecified conjunctivitis; Z79.899 Other long term (current) drug therapy